=== PATIENT | female | born 1955 | race Two or more races ===

== ENCOUNTER 2021-07-27 08:21 | Emergency (ER) | payer OTHER ==
[~2021-07-27] VITALS: Ht 152.4 cm; Wt 49.9 kg
[2021-07-27 09:00] VITALS: BP 117/63
[2021-07-27] MEDS ORDERED: ACETAMINOPHEN 325 MG TAB PO ONE (09:30)
[2021-07-27] MEDS ORDERED: cefTRIAXone SOD 1,000 MG VL IM ONE (09:30)
[2021-07-27 10:07] LABS: Basophils # (auto) 0 10 ^3/uL (0-0.2); Basophils % (auto) 0.2 % (0.0-2.0); Eosinophils # (auto) 0 10 ^3/uL (0-0.8); Nucleated Red Blood Cells % 0.1 %; Red Cell Distribution Width 12.7 % (11.8-14.3)
[2021-07-27 10:11] LABS: Hematocrit 37.6 % (36.0-46.0); Lymphocytes # (auto) 0.6 10 ^3/uL (0.4-5.4); Lymphocytes % (auto) 6.6 % (10.0-50.0); Mean Corpuscular Hemoglobin 32.6 pg (28.0-32.0); Mean Corpuscular Hgb Conc. 34.6 g/dL (32.0-36.0); Mean Corpuscular Volume 94.5 fL (80.0-100.0); Monocytes % (auto) 11.1 % (0.0-12.0); Neutrophils % (auto) 82.1 % (37.0-80.0); Red Blood Cells 3.98 10^6/uL (4.0-5.20); White Blood Cell 8.6 10^3/uL (4.4-10.8)
[2021-07-27 10:17] LABS: Albumin 2.7 g/dL (3.4-5.0); Anion Gap 8 (5-15); Blood Urea Nitrogen 9 mg/dL (7-18); Calcium 9.3 mg/dL (8.5-10.1); Carbon Dioxide 26 mmol/L (21-32); Chloride 104 mmol/L (98-107); Glucose 102 mg/dL (74-106); Potassium 4.3 mmol/L (3.5-5.1); Sodium 138 mmol/L (136-145)
[2021-07-27 10:22] LABS: Alanine Aminotransferase 181 U/L (13-56); Alkaline Phosphatase 122 U/L (45-117); Aspartate Aminotransferase 81 U/L (15-37); BUN/Creatinine Ratio 14.5; Bilirubin, Total 0.7 mg/dL (0.2-1.0); GFR African American 124 mL/min; GFR Non-African American 102 mL/min
== END 2021-07-27 11:10 | disposition home or self-care (01) ==
LOC: ER 08:21 → EDBD 08:21 → ER 11:05
DX: J06.9 Acute upper respiratory infection, unspecified (principal); E78.5 Hyperlipidemia, unspecified; Z20.822 Contact with and (suspected) exposure to COVID-19
CPT/HCPCS: 36415; 71045; 80053; 83880; 84484; 85025; 87426; 93005; 96372; 99285; J0696